=== PATIENT | female | born 1970 | race Caucasian/White ===

== ENCOUNTER → 2016-04-30 08:22 | Outpatient (CLI) | payer MEDICAID ==
[~2016-04-30 08:22] MED LIST: AMBIEN CR12.5 MG/BO PO; BENADRYL50 MG PO; FERRETTS324 MG PO; HYDROCODONE-APA1 TAB PO; IBUPROFEN600 MG PO; LISINOPRIL10 MG PO; OMEPRAZOLE20 M1 PO; PARAFON FORTE500 MG; PERCOCET 5-3251 TAB PO; PHENERGAN25 M1 PO; POTASSIUM99 M1 PO; PROZAC10 MG PO; ROPINIROLE HCL2 MG PO; TOPROL XL50 MG PO; XANAX1 MG PO
== END | disposition home or self-care (01) ==
LOC: D.US 04-22 08:30
DX: R10.10 Upper abdominal pain, unspecified (principal)

== ENCOUNTER → 2019-12-20 19:49 | Outpatient (CLI) | payer SELFPAY ==
[2019-12-20 21:20] LABS: BASOPHILS 0.3 % (0-2); EOSINOPHILS 3.1 % (0-7); HEMATOCRIT 44.8 % (36.0-48.0); HEMOGLOBIN 14.3 g/dL (12-16); IMMATURE GRANULOCYTES 0.4 % (0-5); LYMPHOCYTES 32.5 % (15-50); MCHC 31.9 g/dL (31.0-37.0); MCV 94.1 fL (80.0-100.0); MEAN PLATELET VOLUME 10.6 fL (7.4-10.4); MONOCYTES 8.4 % (2-11); NEUTROPHILS 55.3 % (40-80); PLATELET COUNT 264 10x3/uL (130-400); RBC 4.76 10x6/uL (4.00-5.40); RDW 13.6 % (11.5-14.5); WBC 7.4 10x3/uL (4.8-10.8)
[2019-12-20 21:36] LABS: ALBUMIN 3.7 g/dL (3.4-5.0); ANION GAP 12.1 mmol/L (8-16); BILIRUBIN - TOTAL 0.35 mg/dL (0.2-1.3); CALCIUM 8.9 mg/dL (8.5-10.1); CARBON DIOXIDE 25.8 mmol/L (21.0-32.0); CREATININE - SERUM 0.9 mg/dL (0.6-1.3); LDL-HDL RATIO 3.1 ratio (1.5-3.5); POTASSIUM - SERUM 3.9 mmol/L (3.5-5.1); PROTEIN - SERUM 7.4 g/dL (6.4-8.2); THYROID STIMULATING HORMONE 1.08 uIU/mL (0.36-3.74)
[2019-12-22 09:14] LABS: HEPATITIS C ANTIBODY <0.1 S/CO RAT (0.0-0.9)
== END | disposition home or self-care (01) ==
LOC: D.LABREF 19:49
PROVIDERS: ATTEND Family Medicine
DX: I10 Essential (primary) hypertension (principal); K21.9 Gastro-esophageal reflux disease without esophagitis; D50.9 Iron deficiency anemia, unspecified